=== PATIENT | male | born 1995 | race Caucasian/White ===

== ENCOUNTER 2019-01-09 14:22 | Emergency (ER) | payer OTHER ==
[~2019-01-09] VITALS: Ht 177.8 cm; Wt 84.0 kg
[~2019-01-09 14:22] MED LIST: CARI350T PO; CYCL-1 PO; ERYT1OIN6 OP; HYDR-4383 PO; IBUP-1984 PO; METH4TAB3 PO; NO HOME MEDS; [UNRECOGNIZED DRUG - CODE] OP
--- NOTE | 2019-01-09 15:42 | NUR ---
Mom at bedside,patient placed on a green gown.
--- NOTE | 2019-01-09 16:02 | NUR ---
made aware that urine specimen is needed.
[2019-01-09 16:21] LABS: URINE AMPHETAMINE SCREEN NEGATIVE (Neg); URINE BARBITUATE SCREEN NEGATIVE (Neg); URINE BENZODIAZEPINES SCREEN NEGATIVE (Neg); URINE CANNABINOID SCREEN POSITIVE (Neg); URINE COCAINE SCREEN NEGATIVE (Neg); URINE METHADONE SCREEN NEGATIVE (Neg); URINE OPIATE SCREEN NEGATIVE (Neg); URINE PHENCYCLIDINE SCREEN NEGATIVE (Neg)
[2019-01-09 16:38] LABS: BASOPHILS # (AUTO) 0.1 X10'3 (0-0.2); BASOPHILS % (AUTO) 0.7 % (0-1); EOSINOPHILS # (AUTO) 0.1 X10'3 (0-0.9); EOSINOPHILS % (AUTO) 0.7 % (0-6); HEMATOCRIT 45.9 % (42.0-52.0); HEMOGLOBIN 16.5 g/dl (14.0-17.9); LYMPHOCYTES # (AUTO) 3.3 X10'3 (1.1-4.8); LYMPHOCYTES % (AUTO) 26.6 % (21-51); MEAN CORPUSCULAR VOLUME 94.6 FL (78-98); MEAN PLATELET VOLUME 8.4 FL (7.4-10.4); MONOCYTES # (AUTO) 0.9 X10'3 (0-0.9); MONOCYTES % (AUTO) 7.7 % (2-12); NEUTROPHILS # (AUTO) 7.9 X10'3 (1.8-7.7); NEUTROPHILS % (AUTO) 64.3 % (42-75); PLATELET COUNT 220 X10'3 (140-440); RED BLOOD COUNT 4.85 X10'6 (4.70-6.10); RED CELL DISTRIBUTION WIDTH 12.7 % (11.5-14.5); WHITE BLOOD COUNT 12.3 X10'3 (4.5-11.0)
[2019-01-09 16:43] LABS: ALANINE AMINOTRANSFERASE 38 U/L (12-78); ALBUMIN 4.4 G/DL (3.4-5.0); ALBUMIN/GLOBULIN RATIO 1.4 (1.1-1.5); ALKALINE PHOSPHATASE 64 IU/L (46-116); ANION GAP 10 (8-16); ASPARTATE AMINO TRANSFERASE 22 U/L (10-37); BILIRUBIN,TOTAL 0.7 MG/DL (0.1-1.0); BLOOD UREA NITROGEN 14 MG/DL (7-18); BUN/CREATININE RATIO 16.5 (5.4-32.0); CALCIUM 9.1 MG/DL (8.5-10.1); CHLORIDE 105 MMOL/L (99-107); CREATININE 0.85 MG/DL (0.60-1.10); GLUCOSE 96 MG/DL (70-104); POTASSIUM 3.1 MMOL/L (3.5-5.1); SODIUM 141 MMOL/L (135-145); TOTAL CARBON DIOXIDE 26.3 MMOL/L (24-32); TOTAL PROTEIN 7.6 G/DL (6.4-8.2); eGFR > 90 ML/MIN
[2019-01-09 16:44] LABS: ETHANOL < 0.010 GM/DL (0.0-0.010)
[2019-01-09 17:22] LABS: PLATELET ESTIMATE NORMAL; SPHEROCYTES 1+
--- NOTE | 2019-01-09 18:13 | NUR ---
patient requesting something to "calm him down",no reported home meds.Gloria BYRD made aware.
[2019-01-09] MEDS ORDERED: LORazepam 1 MG tablet PO ONE (18:15)
--- NOTE | 2019-01-09 19:10 | NUR ---
REPORT CALLED TO ER OVERFLOW FOR TRANSFER OF PATIENT. REGULAR DIET ORDERED.
--- NOTE | 2019-01-09 19:14 | NUR ---
This patient ambulated from ER room 4 to overflow bed 25. He was accompanied by JOSELO Samuel and a PCT. The patient is wearing green scrubs and is provided a regular dinner tray. His belongings are in the [facility] lockers. The patient is oriented to the unit and providwed a pitcher of water.
[2019-01-09] MEDS ORDERED: temazepam 15mg capsule PO PRN (20:15)
--- NOTE | 2019-01-09 20:47 | NUR ---
The patient c/o inability to sleep. MD Engle notified and order received for Restoril 15mg PO qhs PRN.
--- NOTE | 2019-01-09 21:53 | NUR ---
Pt belongings could not be located by this parts data writer. Security checked tapes to ascertain where belongings were placed. Recordings showed railroad signal technician Etta placing belongings in ambulance bay lockers. Day RN Yris informed NERISSA Bonner that pl's mother had taken belongings home.
--- NOTE | 2019-01-09 21:58 | NUR ---
The patient is sleeping in supine position. Resp. unlabored. No s/s of distress.
--- NOTE | 2019-01-10 00:25 | NUR ---
The patient is asleep on her right side. No distress noted.
--- NOTE | 2019-01-10 01:07 | NUR ---
The patient is asleep on his left side. Resp unlabored. No s/s of distress noted.
--- NOTE | 2019-01-10 03:10 | NUR ---
The patient continues to sleep on his left side.
--- NOTE | 2019-01-10 05:08 | NUR ---
The patient is asleep on his right side.
[2019-01-10 05:30] VITALS: BP 115/64
--- NOTE | 2019-01-10 06:20 | NUR ---
Pt. sleeping on his right side at this time, rr even and unlabored.
--- NOTE | 2019-01-10 08:20 | NUR ---
Pt calling his mom. Reports anxiety.
--- NOTE | 2019-01-10 09:16 | NUR ---
Pt's mom Cori here making a reort of lost valuables. List of valuables given to charge weigher Debbie and copy put in chart.
--- NOTE | 2019-01-10 09:53 | NUR ---
Yuly from [facility] at bedside to evaluate pt.
--- NOTE | 2019-01-10 10:26 | NUR ---
Phoned [facility] to ask for a psych consult for pt
--- NOTE | 2019-01-10 11:44 | NUR ---
Pt is prescribed ambien for sleep and given the names of several places accepting new patients. [place] [facility] [place] no longer suicidal and wishes to go home. Yuly from [facility] is in agreement with allowing pt to be discharged.
[2019-01-10] MEDS ORDERED: ZOLP10TA5 PO (11:55)
--- NOTE | 2019-01-10 12:25 | NUR ---
Front End Engineer was made aware on shift change of patient's missing belongings. Pt was being discharged so the check writer looked into where his belongings went. Front End Engineer reviewed security footage showing the tech taking the belongings to the ambulance bay locker and returning into the ED without the belongings in his hands. Front End Engineer searched the bags in the locker. Front End Engineer found pts belongings in the ER section with a different pt admissions counselor it. Charge nurse Sara and security made aware. Belongings returned to the pt.
== END 2019-01-10 12:31 | disposition home or self-care (01) ==
LOC: ER 14:22
DX: F32.9 Major depressive disorder, single episode, unspecified (principal); F17.200 Nicotine dependence, unspecified, uncomplicated; F12.90 Cannabis use, unspecified, uncomplicated; Z90.89 Acquired absence of other organs; Z88.5 Allergy status to narcotic agent; Z88.6 Allergy status to analgesic agent; Z79.899 Other long term (current) drug therapy
CPT/HCPCS: 36415; 80053; 80305; 80320; 85025; 99284

== ENCOUNTER 2021-12-16 14:12 | Inpatient (IN) | payer OTHER ==
[2021-12-15 22:00] VITALS: BP 140/81
[2021-12-16] VITALS (9 sets, daily range): BP systolic 86–142; BP diastolic 52–84
[~2021-12-16] VITALS: Ht 182.9 cm; Wt 100.0 kg
[2021-12-16 14:54] LABS: BASOPHILS # (AUTO) 0.2 X10'3 (0-0.2); BASOPHILS % (AUTO) 0.7 % (0-1); EOSINOPHILS # (AUTO) 0.1 X10'3 (0-0.9); EOSINOPHILS % (AUTO) 0.6 % (0-6); HEMATOCRIT 44.8 % (42.0-52.0); HEMOGLOBIN 16.4 g/dl (14.0-17.9); LYMPHOCYTES # (AUTO) 3.2 X10'3 (1.1-4.8); MEAN CORPUSCULAR HEMOGLOBIN 32.7 PG (27.0-31.0); MEAN CORPUSCULAR HGB CONC 36.7 g/dL (33.0-36.5); MEAN CORPUSCULAR VOLUME 89.1 FL (78-98); MEAN PLATELET VOLUME 8.1 FL (7.4-10.4); MONOCYTES # (AUTO) 1.5 X10'3 (0-0.9); MONOCYTES % (AUTO) 6.3 % (2-12); NEUTROPHILS # (AUTO) 18.2 X10'3 (1.8-7.7); NEUTROPHILS % (AUTO) 78.4 % (42-75); PLATELET COUNT 217 X10'3 (140-440); RED BLOOD COUNT 5.02 X10'6 (4.70-6.10); RED CELL DISTRIBUTION WIDTH 12.3 % (11.5-14.5); WHITE BLOOD COUNT 23.2 X10'3 (4.5-11.0)
[2021-12-16 15:05] LABS: ALANINE AMINOTRANSFERASE 52 U/L (12-78); ALBUMIN 4.2 G/DL (3.4-5.0); ALBUMIN/GLOBULIN RATIO 1.3 (1.1-1.5); ALKALINE PHOSPHATASE 86 IU/L (46-116); ANION GAP 11 (8-16); ASPARTATE AMINO TRANSFERASE 24 U/L (10-37); BILIRUBIN,TOTAL 0.9 MG/DL (0.1-1.0); BLOOD UREA NITROGEN 16 MG/DL (7-18); BUN/CREATININE RATIO 15.1 (5.4-32.0); CALCIUM 9.9 MG/DL (8.5-10.1); CHLORIDE 104 MMOL/L (99-107); CREATININE 1.06 MG/DL (0.60-1.10); GLUCOSE 133 MG/DL (70-104); LIPASE 78 U/L (73-393); POTASSIUM 3.6 MMOL/L (3.5-5.1); SODIUM 139 MMOL/L (135-145); TOTAL CARBON DIOXIDE 24.5 MMOL/L (24-32); TOTAL PROTEIN 7.5 G/DL (6.4-8.2); eGFR 83 ML/MIN
[2021-12-16 15:48] LABS: PLATELET ESTIMATE NORMAL
[2021-12-16 15:49] LABS: SPHEROCYTES FEW
[2021-12-16] MEDS ORDERED: CefTRIAXone/D5W-Rocephin 1gm 50 ML IV ONE (16:25)
[2021-12-16] MEDS ORDERED: morphine 4 MG/ML inj SYRINge IV ONE ×2 (16:25→19:15)
[2021-12-16] MEDS ORDERED: ondansetron/PF 4mg/2ml inj IV ONE (16:25)
[2021-12-16] MEDS ORDERED: ringers solution, lacted 1,000 ML IV ONE (16:30)
[2021-12-16] MEDS ORDERED: POTASSIUM BICARB 20meq eff tab 20 MEQ TABLET.EFF PO PRN ×2 (16:45)
[2021-12-16] MEDS ORDERED: potassium CL 10mEq/100ml bag 100 ML IV PRN (16:45)
[2021-12-16] MEDS: normal saline 1000ml 1,000 ML IV SCH ×2 (16:45→22:59)
[2021-12-16] MEDS ORDERED: magnesium 2GM in 50ml NS 50 ML IV PRN (16:45)
[2021-12-16] MEDS ORDERED: magnesium 4gm in 100ml NS 100 ML IV PRN (16:45)
[2021-12-16] MEDS ORDERED: magnesium Cl slow-release 64mg tablet PO PRN (16:45)
[2021-12-16 16:59] LABS: MAGNESIUM 1.9 MG/DL (1.5-2.4)
[2021-12-16] MEDS: CefTRIAXone/D5W-Rocephin 1gm 50 ML IV SCH (17:26)
[2021-12-16] MEDS ORDERED: iohexol 350MG/ML 100ml bottle IV ONE (17:29)
[2021-12-16 18:21] LABS: CLARITY,URINE CLEAR (Clear); COLOR,URINE YELLOW (Yellow); GLUCOSE, URINE NEGATIVE (Neg); KETONES,URINE NEGATIVE (Neg); LEUKOCYTE ESTERASE ,URINE NEGATIVE (Neg); NITRITES, URINE NEGATIVE (Neg); OCCULT BLOOD,URINE NEGATIVE (Neg); PROTEIN,URINE NEGATIVE (Neg); UROBILINOGEN,URINE 0.2 E.U/dL (0.2-1.0)
[2021-12-16 18:55] LABS: UA COLLECTION TYPE URINAL
[2021-12-16] MEDS ORDERED: morphine 4 MG/ML inj SYRINge ONE (19:17)
--- NOTE | 2021-12-16 19:47 | NUR ---
SBAR to floor RN
[2021-12-16] MEDS: K and/or MAG REPLACEMENT MC SCH (20:00)
--- NOTE | 2021-12-16 20:00 | NUR ---
pt arrived from er. has been oriented to the floor.
[2021-12-16] MEDS ORDERED: hydrALAZINE 20mg/ml inj. IV PRN (20:20)
[2021-12-16] MEDS ORDERED: morphine 2 MG/ML inj. syringe IV PRN (20:20)
[2021-12-16] MEDS ORDERED: fentaNYL/PF 50MCG/1 ML 2ML syringe IV PRN ×2 (20:20)
[2021-12-16] MEDS ORDERED: morphine 4 MG/ML inj SYRINge IV PRN (20:20)
[2021-12-16] MEDS ORDERED: labetalol 20mg/4ml (5mg/ml) syringe IV PRN (20:20)
[2021-12-16] MEDS ORDERED: ringers solution, lacted 1,000 ML IV SCH (20:20)
[2021-12-16] MEDS ORDERED: ondansetron/PF 4mg/2ml inj IV PRN ×2 (20:20→20:25)
[2021-12-16 20:40] LABS: PRE OP PARTIAL THROMB. TIME 27 SECONDS (22-32)
[2021-12-16] MEDS ORDERED: fentaNYL/PF 50MCG/1 ML 2ML syringe ONE (20:45)
[2021-12-16] MEDS ORDERED: midazolam 1 mg/ML 2ml injection ONE (20:45)
[2021-12-16] MEDS ORDERED: dexamethasone sod phosphate 4mg/ml inj. ONE (20:47)
[2021-12-16] MEDS ORDERED: propofol inj 20 ML IV ONE (20:48)
[2021-12-16] MEDS ORDERED: glycopyrrolate 0.2mg/ml inj ONE (20:48)
[2021-12-16] MEDS ORDERED: neostigmine methylsulfate 1 MG/ML 10ml vial ONE (20:48)
[2021-12-16] MEDS ORDERED: LIDOcaine 2% (20mg/ml) 5ml vial ONE (20:48)
[2021-12-16] MEDS ORDERED: rocuronium 10mg/ml inj IV ONE ×2 (20:48→21:41)
[2021-12-16] MEDS ORDERED: ondansetron/PF 4mg/2ml inj ONE (20:48)
[2021-12-16] MEDS ORDERED: BUPIVAcaine/PF 2.5 mg/ml (0.25%) 30ml vial ONE (20:53)
[2021-12-16] MEDS ORDERED: ceFOXitin 1000 MG inj ONE ×2 (21:29)
[2021-12-16] MEDS ORDERED: sugammadex 200mg/2ml injection IV ONE (21:42)
[2021-12-16] MEDS ORDERED: naloxone 0.4 mg/ml inj IV PRN (22:00)
--- NOTE | 2021-12-16 22:00 | NUR ---
PT RECOVERED IN OR D/T POSITIVE COVID TEST-ASYMPTOMATIC, PT WAKING UP, VSS, LAP SITES X3 TO ABD-UMBILICUS SITE SLIGHT BLEEDING NOTED-REINFORCED WITH 4X4'S. SCDS ON, GIVEN DEMEROL FOR SHIVERS X1
[2021-12-16] MEDS ORDERED: meperidine/PF 25mg/ml syringe ONE (22:01)
--- NOTE | 2021-12-16 22:30 | NUR ---
PT AWAKE, DENIES PAIN, VSS, NO CHANGES IN ASSESSMENT OR DRSG AT LAP SITES, REPORT CALLED TO CINDY RN-ALL QUESTIONS ANSWERED, PT TAKEN TO ISOLATION ROOM 4007, BELONGINGS IN ROOM, BED LOW AND LOCKED, PRIMARY RN IN ROOM TO RECEIVE PT.
--- NOTE | 2021-12-16 22:36 | NUR ---
received report from luiza aSntana
[2021-12-16] MEDS: morphine 4 MG/ML inj SYRINge IV PRN (22:58)
--- NOTE | 2021-12-16 23:07 | NUR ---
PT BACK FROM SURGERY. IN ROOM 4006 COVID ISOLATION. VSS.
[2021-12-16] MEDS ORDERED: HYDROmorphone inj. 0.5 MG/0.5 ML DISP.SYRIN IV PRN (23:50)
[2021-12-17] VITALS: BP 124/80
[2021-12-17] MEDS: HYDROmorphone 1 mg/ml syringe IV PRN ×3 (00:03→09:18)
[2021-12-17 00:30] VITALS: BP 115/75
[2021-12-17 01:30] VITALS: BP 113/67
[2021-12-17 02:30] VITALS: BP 125/64
[2021-12-17] MEDS: morphine 4 MG/ML inj SYRINge IV PRN (02:55)
[2021-12-17] MEDS ORDERED: GABA300C PO ×2 (05:32→05:43)
[2021-12-17 05:57] LABS: BASOPHILS % (AUTO) 0.2 % (0-1); EOSINOPHILS % (AUTO) 0 % (0-6); HEMATOCRIT 43.5 % (42.0-52.0); HEMOGLOBIN 15.2 g/dl (14.0-17.9); LYMPHOCYTES % (AUTO) 5.9 % (21-51); MEAN CORPUSCULAR HEMOGLOBIN 32.2 PG (27.0-31.0); MEAN CORPUSCULAR HGB CONC 34.9 g/dL (33.0-36.5); MEAN CORPUSCULAR VOLUME 92.3 FL (78-98); MEAN PLATELET VOLUME 8.7 FL (7.4-10.4); MONOCYTES # (AUTO) 0.7 X10'3 (0-0.9); MONOCYTES % (AUTO) 4.4 % (2-12); NEUTROPHILS # (AUTO) 14.8 X10'3 (1.8-7.7); NEUTROPHILS % (AUTO) 89.5 % (42-75); PLATELET COUNT 189 X10'3 (140-440); RED BLOOD COUNT 4.71 X10'6 (4.70-6.10); RED CELL DISTRIBUTION WIDTH 12.5 % (11.5-14.5); WHITE BLOOD COUNT 16.6 X10'3 (4.5-11.0)
[2021-12-17 06:00] VITALS: BP 108/58
[2021-12-17 06:09] LABS: ALBUMIN 3.3 G/DL (3.4-5.0); ANION GAP 9 (8-16); BLOOD UREA NITROGEN 10 MG/DL (7-18); CALCIUM 8.3 MG/DL (8.5-10.1); CHLORIDE 105 MMOL/L (99-107); CREATININE 0.91 MG/DL (0.60-1.10); GLUCOSE 167 MG/DL (70-104); MAGNESIUM 1.9 MG/DL (1.5-2.4); POTASSIUM 4.1 MMOL/L (3.5-5.1); SODIUM 141 MMOL/L (135-145); TOTAL CARBON DIOXIDE 27.2 MMOL/L (24-32); eGFR > 90 ML/MIN
--- NOTE | 2021-12-17 06:47 | NUR ---
Problems reprioritized. Patient report given, questions answered & plan of care reviewed with JOSELO SOLIS.
[2021-12-17] MEDS: K and/or MAG REPLACEMENT MC SCH ×2 (08:00→19:16)
[2021-12-17] MEDS: CefTRIAXone/D5W-Rocephin 1gm 50 ML IV SCH (09:18)
[2021-12-17] MEDS: normal saline 1000ml 1,000 ML IV SCH ×2 (09:20→19:16)
[2021-12-17] MEDS ORDERED: HYDROmorphone inj. 0.5 MG/0.5 ML DISP.SYRIN IV PRN (09:55)
[2021-12-17 10:00] VITALS: BP 111/73
[2021-12-17] MEDS: HYDROcodone/acetaminophen 10/325mg tab PO PRN ×2 (13:02→17:29)
--- NOTE | 2021-12-17 18:29 | NUR ---
REPORT TO MECHE JOSUE.
[2021-12-17] MEDS ORDERED: IBUP-1986 PO (19:20)
[2021-12-17] MEDS ORDERED: HYDROcodone/acetaminophen 10/325mg tab PO ONE (20:35)
== END 2021-12-17 21:19 | disposition home or self-care (01) | DRG 341 ==
LOC: ER 14:13 → ED HOLD 16:49 → ORTHO 4S 19:59
PROVIDERS: ADMIT Internal Medicine; ATTEND Internal Medicine
PROC: BW211ZZ Computerized Tomography (CT Scan) of Abdomen and Pelvis using Low Osmolar Contrast (ICD-10-PCS; 2021-12-16)
PROC: 0DTJ4ZZ Resection of Appendix, Percutaneous Endoscopic Approach (ICD-10-PCS; principal; 2021-12-16 20:58)
DX: K35.80 Unspecified acute appendicitis (principal); U07.1 COVID-19; F12.90 Cannabis use, unspecified, uncomplicated; G89.29 Other chronic pain; F32.A Depression, unspecified; M54.9 Dorsalgia, unspecified; Z78.9 Other specified health status; Z91.041 Radiographic dye allergy status; Z88.5 Allergy status to narcotic agent; Z79.899 Other long term (current) drug therapy
CPT/HCPCS: 99285; Z7506; 36415; 71045; 74177; 76881; 80048; 80053; 81003; 82948; 83690; 83735; 85008; 85025; 85610; 85730; 87081; 87635; A4215; A4314; A4565; A4618; A7000; G0378; J0694; J0696; J1100; J1170; J2175; J2250; J2270; J2405; J2704; J2710; J3010; J3490; J7030; J7120; Q9967

== ENCOUNTER 2024-04-22 15:23 | Emergency (ER) | payer OTHER ==
[~2024-04-22] VITALS: Ht 177.8 cm; Wt 97.1 kg
[~2024-04-22 15:23] MED LIST changes: -CARI350T PO; -CYCL-1 PO; -ERYT1OIN6 OP; +GABA300C PO; -HYDR-4383 PO; -IBUP-1984 PO; +IBUP-1986 PO; -METH4TAB3 PO; -NO HOME MEDS; -[UNRECOGNIZED DRUG - CODE] OP
[2024-04-22 15:47] VITALS: BP 120/81; PULSE 90; TEMP 97.8; O2SAT 97
[2024-04-22 16:12] LABS: BILIRUBIN,URINE NEGATIVE (Neg); CLARITY,URINE CLEAR (Clear); COLOR,URINE YELLOW (Yellow); GLUCOSE, URINE NEGATIVE (Neg); KETONES,URINE NEGATIVE (Neg); LEUKOCYTE ESTERASE ,URINE NEGATIVE (Neg); NITRITES, URINE NEGATIVE (Neg); OCCULT BLOOD,URINE NEGATIVE (Neg); PROTEIN,URINE NEGATIVE (Neg); UROBILINOGEN,URINE 0.2 E.U/dL (0.2-1.0)
[2024-04-22 16:16] LABS: UA COLLECTION TYPE NON-SPECIFIED
[2024-04-22 16:35] LABS: ALANINE AMINOTRANSFERASE 35 U/L (12-78); ALBUMIN 4.2 G/DL (3.4-5.0); ALBUMIN/GLOBULIN RATIO 1.1 (1.1-1.5); ALKALINE PHOSPHATASE 64 IU/L (46-116); ANION GAP 9 (8-16); ASPARTATE AMINO TRANSFERASE 16 U/L (10-37); BILIRUBIN,TOTAL 0.6 MG/DL (0.1-1.0); BLOOD UREA NITROGEN 12 MG/DL (7-18); BUN/CREATININE RATIO 14.1 (10.0-20.0); CALCIUM 8.7 MG/DL (8.5-10.1); CHLORIDE 104 MMOL/L (99-107); CREATININE 0.85 MG/DL (0.60-1.10); GLUCOSE 152 MG/DL (70-104); LIPASE 35 U/L (16-77); SODIUM 141 MMOL/L (135-145); TOTAL CARBON DIOXIDE 28.1 MMOL/L (24-32); TOTAL PROTEIN 7.9 G/DL (6.4-8.2); eCRCL 131 ML/MIN; eGFR > 90 ML/MIN
[2024-04-22 16:53] LABS: HEMATOCRIT 48.3 % (42.0-52.0); HEMOGLOBIN 16.9 g/dl (14.0-17.9); MEAN CORPUSCULAR HEMOGLOBIN 33.2 PG (27.0-31.0); MEAN CORPUSCULAR VOLUME 94.9 FL (78-98); PLATELET COUNT 209 X10'3 (140-440); RED BLOOD COUNT 5.08 X10'6 (4.70-6.10); RED CELL DISTRIBUTION WIDTH 12.4 % (11.5-14.5)
[2024-04-22 16:57] LABS: BASOPHILS % (AUTO) 0.6 % (0-1); EOSINOPHILS % (AUTO) 1.6 % (0-6); LYMPHOCYTES % (AUTO) 31.8 % (21-51); MONOCYTES % (AUTO) 6.8 % (2-12); NEUTROPHILS % (AUTO) 59.2 % (42-75); WHITE BLOOD COUNT 9.6 X10'3 (4.5-11.0)
[2024-04-22 16:58] LABS: BASOPHILS # (AUTO) 0.1 X10'3 (0-0.2); EOSINOPHILS # (AUTO) 0.2 X10'3 (0-0.9); MONOCYTES # (AUTO) 0.7 X10'3 (0-0.9); NEUTROPHILS # (AUTO) 5.7 X10'3 (1.8-7.7)
[2024-04-22] MEDS ORDERED: CYCL-1 PO (17:15)
[2024-04-22] MEDS ORDERED: LIDO700A32 TOP (17:15)
[2024-04-22 17:40] VITALS: RESP 16
[2024-04-22] MEDS: ketorolac trometh 15mg/ml vial 15 MG/ML ML IM ONE (17:40)
[2024-04-22] MEDS: LIDOcaine 5% patch TP ONE (17:42)
== END 2024-04-22 18:04 | disposition home or self-care (01) ==
LOC: ER 15:24
DX: M54.50 Low back pain, unspecified (principal); F12.90 Cannabis use, unspecified, uncomplicated; G89.29 Other chronic pain; Z79.899 Other long term (current) drug therapy; Z98.890 Other specified postprocedural states; Z90.89 Acquired absence of other organs
CPT/HCPCS: 36415; 80053; 81003; 83690; 85025; 96372; 99283; J1885

== ENCOUNTER 2024-04-24 16:44 | Emergency (ER) | payer OTHER ==
[~2024-04-24] VITALS: Ht 177.8 cm; Wt 95.9 kg
[~2024-04-24 16:44] MED LIST changes: +CYCL-1 PO; +LIDO700A32 TOP
[2024-04-24 16:46] VITALS: BP 129/89; PULSE 104; RESP 16; TEMP 98; O2SAT 98
[2024-04-24] MEDS ORDERED: HYDR-3965 PO (17:09)
[2024-04-24] MEDS ORDERED: PRED20TA PO (17:09)
[2024-04-24] MEDS: dexamethasone sod phosphate 10mg/ml inj IM ONE (17:11)
[2024-04-24] MEDS: HYDROcodone/acetaminophen 10/325mg tab PO ONE (17:12)
== END 2024-04-24 17:58 | disposition home or self-care (01) ==
LOC: ER 16:45
DX: M54.59 Other low back pain (principal); M54.17 Radiculopathy, lumbosacral region; G89.29 Other chronic pain; M54.9 Dorsalgia, unspecified; F32.A Depression, unspecified; F12.90 Cannabis use, unspecified, uncomplicated; Z79.1 Long term (current) use of non-steroidal anti-inflammatories (NSAID); Z79.899 Other long term (current) drug therapy; Z90.89 Acquired absence of other organs
CPT/HCPCS: 72100; 96372; 99283; J1100